=== PATIENT | female | born 1930 | race Caucasian/White ===

== ENCOUNTER 2016-07-01 09:10 | Outpatient (CLI) | payer OTHER, MEDICAID | END 2016-07-01 18:23 | disposition home or self-care (01) | LOC: SNM 09:10 | PROVIDERS: ATTEND Internal Medicine Medical Oncology | DX: C78.00 Secondary malignant neoplasm of unspecified lung (principal); C77.5 Secondary and unspecified malignant neoplasm of intrapelvic lymph nodes; C79.51 Secondary malignant neoplasm of bone | CPT/HCPCS: 78306; A9503 ==

== ENCOUNTER 2016-12-10 09:35 | Outpatient (CLI) | payer OTHER, MEDICAID | END 2016-12-10 13:40 | disposition home or self-care (01) | LOC: SNM 09:35 | PROVIDERS: ATTEND Internal Medicine Medical Oncology | DX: C50.919 Malignant neoplasm of unspecified site of unspecified female breast (principal) | CPT/HCPCS: 78306; A9503 ==